=== PATIENT | female | born 1970 ===

== ENCOUNTER 2017-01-26 08:14 | Outpatient (CLI) | payer BC | END 2017-01-26 08:15 | disposition home or self-care (01) | LOC: LABHHL 08:14 | PROVIDERS: ATTEND Surgery | DX: D24.1 Benign neoplasm of right breast (principal); N60.91 Unspecified benign mammary dysplasia of right breast | CPT/HCPCS: 88305 ==

== ENCOUNTER 2017-02-01 12:38 | Outpatient (CLI) | payer BC ==
--- NOTE | 2017-02-01 14:01 | Mammography Report ---
RIGHT DIGITAL DIAGNOSTIC MAMMOGRAM: 02/01/17 12:38:00 CLINICAL: For clip placement status post recent ultrasound biopsy. Pathology revealed papilloma. COMPARISON:Recent mammograms and ultrasound from [facility] FINDINGS: A subareolar biopsy clip is identified approximately 3 cm from the nipple on the lateral view. The clip is adjacent to what appears to be a dilated duct on the CC view. However, there is no discrete mass on both views. IMPRESSION: Concordant clip placement status post ultrasound biopsy.
== END 2017-02-01 12:39 | disposition home or self-care (01) ==
LOC: SPVWC 12:38
PROVIDERS: ATTEND Surgery
DX: R92.8 Other abnormal and inconclusive findings on diagnostic imaging of breast (principal)
CPT/HCPCS: G0206-RT